=== PATIENT | male | born 1950 | race Two or more races ===

== ENCOUNTER 2018-06-01 13:47 | Emergency (ER) | payer MEDICARE, MEDICAID ==
[~2018-06-01] VITALS: Ht 180.3 cm; Wt 79.4 kg
--- NOTE | 2018-06-01 14:07 | NUR ---
BIB SELF SKIN TEAR ON LFA AND L HAND, ALSO C/O HEMATOMA TO RIGHT SIDE OF THE HEAD, -KO, ALERT AND ORIENTED X 4, VERBALLY RESPONSIVE, ABLE TO MAKE NEEDS KNOWN. ON ROOM AIR, BREATHING EVENLY AND UNLABORED. KEPT COMFORTABLE, WILL CONTINUE TO MONITOR ACCORDINGLY. AWAITING FOR MD TO EVAL.
[2018-06-01] MEDS ORDERED: BACI/NEOM/POLY B OINT PKT 1 UDPKT PACKET ONE (14:48)
[2018-06-01] MEDS ORDERED: BACI/NEOM/POLY B OINT PKT 1 UDPKT PACKET TP ONE (15:00)
[2018-06-01 16:11] VITALS: BP 145/74
--- NOTE | 2018-06-01 16:12 | NUR ---
Patient discharged to home in stable condition. Written and verbal after care instructions given. Patient verbalizes understanding of instruction.
== END 2018-06-01 16:12 | disposition home or self-care (01) ==
LOC: ER 14:11
DX: S06.0X0A Concussion without loss of consciousness, initial encounter (principal); S51.812A Laceration without foreign body of left forearm, initial encounter; S00.03XA Contusion of scalp, initial encounter; Z98.890 Other specified postprocedural states; W01.198A Fall on same level from slipping, tripping and stumbling with subsequent striking against other object, initial encounter; Y93.89 Activity, other specified; Y92.89 Other specified places as the place of occurrence of the external cause; Y99.8 Other external cause status
CPT/HCPCS: 70450; 99284; A4606; A6403; Z7610

== ENCOUNTER 2018-10-09 08:15 | Emergency (ER) | payer MEDICARE, MEDICAID ==
[~2018-10-09] VITALS: Ht 180.3 cm; Wt 77.1 kg
[2018-10-09 08:18] VITALS: BP 145/75
--- NOTE | 2018-10-09 08:47 | NUR ---
for discharge Aftercare Instructions given Home ambulatory- Stable
--- NOTE | 2018-10-09 08:48 | NUR ---
[address] in [place] - 10/09/18 at 0852 by NELIA Patient discharged to home in stable condition. Written and verbal after care instructions given. Patient verbalizes understanding of instruction.
== END 2018-10-09 08:47 | disposition home or self-care (01) ==
LOC: ER 08:16
DX: B95.8 Unspecified staphylococcus as the cause of diseases classified elsewhere (principal); Z98.890 Other specified postprocedural states; Z60.2 Problems related to living alone